=== PATIENT | male | born 1975 | race African-American/Black ===

== ENCOUNTER 2018-03-24 22:31 | Emergency (ER) | payer SELFPAY ==
[2018-03-25] MEDS ORDERED: AMOXICILLIN TRIHYDRATE 500 MG CAPSULE PO ONE (00:07)
[2018-03-25] MEDS ORDERED: PREDNISONE 20 MG TABLET PO ONE (00:07)
[2018-03-25] MEDS ORDERED: ACETAMINOPHEN 325 MG TABLET PO ONE (00:07)
--- NOTE | 2018-03-25 00:08 | ER Document Report ---
ED ENT - General Chief Complaint: Constipation Stated Complaint: SORE THROAT Time Seen by Provider: 03/25/18 00:07 TRAVEL OUTSIDE OF THE [place] IN LAST 30 DAYS: No Physical Exam - Vital signs Vitals: Temp Pulse Resp BP Pulse Ox 100.5 F H 97 16 139/80 H 99 03/24/18 23:25 03/24/18 23:25 03/24/18 23:25 03/24/18 23:25 03/24/18 23:25 Course - Vital Signs Vital signs: Temp Pulse Resp BP Pulse Ox 100.5 F H 97 16 139/80 H 99 03/24/18 23:25 03/24/18 23:25 03/24/18 23:25 03/24/18 23:25 03/24/18 23:25 Discharge - Discharge Referrals: LOCALMD,NO [Primary Care Provider] - Follow up as needed
--- NOTE | 2018-03-25 01:05 | ER Document Report ---
ED Medical Screen (RME) - General Chief Complaint: Sore Throat Stated Complaint: SORE THROAT Time Seen by Provider: 03/25/18 00:07 Mode of Arrival: Wheelchair Information source: Patient Notes: Patient is a 42-year-old male who presents to the ER today for initial complaint of just sore throat 3 days with fever and chills at home. Patient denies cough. Patient denies sick contacts that he knows of. Orders were placed for this complaint and whenever I went to check on patient to see if his fever had gotten any better, he then started coming up with more complaints, abdominal pain, mostly epigastric but radiating to the right upper quadrant and no bowel movement in 3 days. Patient states that he has had "twisted intestines" that had to be "cut out" before. Patient admits to nausea but no vomiting. TRAVEL OUTSIDE OF THE [place] IN LAST 30 DAYS: No Past Medical History - General Information source: Patient Review of Systems - Review of Systems EENT: See HPI Gastrointestinal: See HPI Physical Exam - Vital signs Vitals: Temp Pulse Resp BP Pulse Ox 100.5 F H 97 16 139/80 H 99 03/24/18 23:25 03/24/18 23:25 03/24/18 23:25 03/24/18 23:25 03/24/18 23:25 - Notes Notes: PHYSICAL EXAMINATION: GENERAL: Mildly ill-appearing but in no acute distress. ENT: ear canals without erythema or foreign body, TMs pearly foster with good bony landmarks, nares patent, oropharynx erythematous with enlarged tonsils bilaterally, left worse than right, without exudates. Moist mucous membranes. NECK: Normal range of motion, supple without lymphadenopathy LUNGS: CTAB and equal. No wheezes rales or rhonchi. HEART: Regular rate and rhythm without murmurs ABDOMEN: Soft, epigastric, right upper quadrant tenderness. No guarding, no rebound Course - Vital Signs Vital signs: Temp Pulse Resp BP Pulse Ox 100.5 F H 97 16 139/80 H 99 03/24/18 23:25 03/24/18 23:25 03/24/18 23:25 03/24/18 23:25 03/24/18 23:25 Doctor's Discharge - Discharge Referrals: LOCALMD,NO [Primary Care Provider] - Follow up as needed
[2018-03-25 02:01] LABS: ALANINE AMINOTRANSFERASE 51 U/L (21-72); ALBUMIN 4.1 g/dL (3.5-5.0); ALKALINE PHOSPHATASE 66 U/L (38-126); ANION GAP 15 (5-19); ASPARTATE AMINO TRANSFERASE 65 U/L (17-59); BILIRUBIN,DIRECT 1.3 mg/dL (0.0-0.4); BILIRUBIN,TOTAL 1.8 mg/dL (0.2-1.3); BLOOD UREA NITROGEN 16 mg/dL (7-20); CALCIUM 9.2 mg/dL (8.4-10.2); CARBON DIOXIDE 36 mmol/L (22-30); CHLORIDE 86 mmol/L (98-107); GLUCOSE 142 mg/dL (75-110); SODIUM 137.2 mmol/L (137-145); TOTAL PROTEIN 8.1 g/dL (6.3-8.2)
[2018-03-25 02:09] LABS: HEMATOCRIT 40.3 % (37.9-51.0); HEMOGLOBIN 14.5 g/dL (13.5-17.0); MEAN CORPUSCULAR HEMOGLOBIN 33.4 pg (27.0-33.4); MEAN CORPUSCULAR HGB CONC 35.9 g/dL (32.0-36.0); MEAN CORPUSCULAR VOLUME 93 fl (80-97); PLATELET COUNT 268 10^3/uL (150-450); RED BLOOD COUNT 4.33 10^6/uL (4.35-5.55); RED CELL DISTRIBUTION WIDTH 13.1 % (11.5-14.0); WHITE BLOOD COUNT 3.9 10^3/uL (4.0-10.5)
[2018-03-25 02:12] LABS: POTASSIUM 2.6 mmol/L (3.6-5.0)
[2018-03-25 02:15] LABS: APPEARANCE,URINE SLIGHTLY-CLOUDY; BILIRUBIN,URINE SMALL (NEGATIVE); COLOR,URINE AMBER; GLUCOSE, URINE 50 mg/dL (NEGATIVE); KETONES,URINE TRACE mg/dL (NEGATIVE); LEUKOCYTE ESTERASE,URINE NEGATIVE (NEGATIVE); NITRITE,URINE NEGATIVE (NEGATIVE); PROTEIN,URINE 100 mg/dL (NEGATIVE); URINE SPECIFIC GRAVITY 1.019
[2018-03-25 02:37] LABS: ABSOLUTE LYMPHOCYTES# (MANUAL) 1.5 10^3/uL (0.5-4.7); ABSOLUTE MONOCYTES # (MANUAL) 1.5 10^3/uL (0.1-1.4); ABSOLUTE NEUTROPHILS# (MANUAL) 0.9 10^3/uL (1.7-8.2); BASOPHILS % (MANUAL) 0 % (0-2); EOSINOPHILS % (MANUAL) 0 % (0-6); LYMPHOCYTES % (MANUAL) 36 % (13-45); SEGMENTED NEUTROPHILS % (MAN) 23 % (42-78); TOTAL CELLS COUNTED 100
[2018-03-25 02:41] LABS: PLATELET COMMENT ADEQUATE; PLATELET LARGE PRESENT; RBC MORPHOLOGY COMMENT NORMO-CYTIC/CHROMIC
--- NOTE | 2018-03-25 02:42 | ER Document Report ---
ED General - General Mode of Arrival: Wheelchair TRAVEL OUTSIDE OF THE [place] IN LAST 30 DAYS: No <MARKOS CANELA - Last Filed: 03/25/18 06:54> <MARANDA ELIZABETH - Last Filed: 03/25/18 10:53> - General Chief Complaint: Sore Throat Stated Complaint: SORE THROAT Time Seen by Provider: 03/25/18 00:07 Notes: Patient is a 42-year-old male who comes emergency department for chief complaint of fevers, sore throat, abdominal pain for the past 3 days. He states he has not been able to eat anything person because his throat hurts but also his abdomen hurts in the upper part. He states he has been constipated. He denies vomiting. He denies chest pain, shortness of breath, dizziness. Past medical history of hypertension, takes hydrochlorothiazide, medical history of appendectomy and abdominal obstruction with surgery into the year 1999. He denies any other surgeries or medical history. He smokes, denies alcohol, denies recreational drugs. (MARKOS CANELA) Past Medical History - General Information source: Patient - Social History Smoking Status: Current Every Day Smoker Smoking Education Provided: Yes - <3 min Frequency of alcohol use: None Drug Abuse: None Lives with: Family Family History: Reviewed & Not Pertinent - Past Medical History Cardiac Medical History: Reports: Hx Hypertension Past Surgical History: Reports: Hx Appendectomy, Hx Bowel Surgery - repaired obstruction in 1999 - Immunizations Immunizations up to date: Yes Hx Diphtheria, Pertussis, Tetanus Vaccination: Yes <MARKOS CANELA - Last Filed: 03/25/18 06:54> Review of Systems - Review of Systems Constitutional: See HPI EENT: See HPI Cardiovascular: No symptoms reported Respiratory: No symptoms reported Gastrointestinal: See HPI Genitourinary: No symptoms reported Male Genitourinary: No symptoms reported Musculoskeletal: No symptoms reported Skin: No symptoms reported Hematologic/Lymphatic: No symptoms reported Neurological/Psychological: No symptoms reported <MARKOS CANELA - Last Filed: 03/25/18 06:54> Physical Exam <MARKOS CANELA - Last Filed: 03/25/18 06:54> <MARANDA ELIZABETH - Last Filed: 03/25/18 10:53> - Vital signs Vitals: Temp Pulse Resp BP Pulse Ox 100.5 F H 97 16 139/80 H 99 03/24/18 23:25 03/24/18 23:25 03/24/18 23:25 03/24/18 23:25 03/24/18 23:25 - Notes Notes: GENERAL: Flushed and mildly ill-appearing HEAD: Normocephalic, atraumatic. EYES: Pupils equal, round, and reactive to light. Extraocular movements intact. ENT: Oral mucosa moist, tongue midline. Unremarkable ear canals and tympanic membranes. Mild erythema posterior pharynx with mild tonsillar enlargement but no exudates or evidence of peritonsillar abscess. Otherwise unremarkable oropharyngeal exam. NECK: Full range of motion. Supple. Trachea midline. LUNGS: Clear to auscultation bilaterally, no wheezes, rales, or rhonchi. No respiratory distress. HEART: Regular rate and rhythm. No murmur ABDOMEN: Generalized pain in the upper abdomen, nonspecific, no overt guarding, no rigidity, no rebound tenderness. Lower abdominal scars.. Non-distended. Bowel sounds present in all 4 quadrants. EXTREMITIES: Moves all 4 extremities spontaneously. No edema, normal radial and dorsalis pedis pulses bilaterally. No cyanosis. BACK: no cervical, thoracic, lumbar midline tenderness. No saddle anesthesia, normal distal neurovascular exam. NEUROLOGICAL: Alert and oriented x3. Normal speech. [cranial nerves II through XII grossly intact]. PSYCH: Normal affect, normal mood. SKIN: Flushed. No rashes noted. (MARKOS CANELA) Course - Laboratory Result Diagrams: 03/25/18 01:25 03/25/18 01:25 <MARKOS CANELA - Last Filed: 03/25/18 06:54> - Laboratory Result Diagrams: 03/25/18 01:25 03/25/18 08:11 <MARANDA ELIZABETH - Last Filed: 03/25/18 10:53> - Re-evaluation Re-evalutation: CBC shows elevated monocytes, leukopenia, patient has sore throat, upper abdominal pain, fever. Monotest is negative but since this test is frequently falsely negative based on his presentation, negative strep test, and evaluation I strongly suspect patient has mononucleosis. Patient reporting right upper quadrant pain, as result ultrasound was performed , shows gallbladder sludge, normal common bile duct, no pericholecystic fluid, no acute findings. No overt splenomegaly either. LFTs are not elevated, alk phos is not elevated, direct bilirubin is mildly elevated. This is nonspecific. Potassium is very low at 2.6, patient states he has had this frequently, in the past, magnesium is normal, supplementing and will recheck. Potassium shows expected u-waves. Suspect this is secondary to hydrochlorothiazide because of repeated incidents and no other obvious indication of why this would be happening. Will need to be adjusted. Discussed with Dr. Smith. Plan is to recheck potassium and at the same time recheck direct bilirubin to make sure this is not concerningly elevating along with liver function tests and alk phos suggesting biliary obstruction as an alternative cause of fever. If this is not concerning the elevated patient will be treated for suspected mononucleosis, discharge, and instructed to return in 2 days to have his chemistry rechecked. I discussed this with patient. Introduced at bedside to Dr. Elizabeth. (MARKOS CANELA) 03/25/18 10:49 The potassium remained low minimal improvement after IV patient was given oral to give another dose of oral potassium. Patient was offered admission to the hospital however states that he cannot stay at this time is that he has to start a job later tonight. Patient states he will be his first day and he does not want to miss it. Otherwise patient states feeling better asymptomatic states he will return and follow-up with his doctors as recommended. (MARANDA ELIZABETH) - Vital Signs Vital signs: Temp Pulse Resp BP Pulse Ox 98.5 F 97 16 123/69 97 03/25/18 09:00 03/24/18 23:25 03/25/18 09:01 03/25/18 09:01 03/25/18 09:01 - Laboratory Laboratory results interpreted by me: 03/25/18 03/25/18 03/25/18 01:25 01:25 01:25 WBC 3.9 L RBC 4.33 L Seg Neuts % (Manual) 23 L Monocytes % (Manual) 38 H Abs Neuts (Manual) 0.9 L Abs Monocytes (Manual) 1.5 H Potassium 2.6 L* Chloride 86 L Carbon Dioxide 36 H Glucose 142 H Total Bilirubin 1.8 H Direct Bilirubin 1.3 H AST 65 H Lipase 21.0 L Urine Protein 100 H Urine Glucose (UA) 50 H Urine Ketones TRACE H Urine Blood SMALL H Urine Bilirubin SMALL H Urine Urobilinogen 4.0 H 03/25/18 08:11 WBC RBC Seg Neuts % (Manual) Monocytes % (Manual) Abs Neuts (Manual) Abs Monocytes (Manual) Potassium 2.8 L* Chloride 89 L Carbon Dioxide 39 H Glucose 198 H Total Bilirubin Direct Bilirubin 0.8 H AST Lipase Urine Protein Urine Glucose (UA) Urine Ketones Urine Blood Urine Bilirubin Urine Urobilinogen Discharge <MARKOS CANELA - Last Filed: 03/25/18 06:54> <MARANDA ELIZABETH - Last Filed: 03/25/18 10:53> - Discharge Clinical Impression: Upper abdominal pain, Hypokalemia Fever Qualifiers: Fever type: unspecified Qualified Code(s): R50.9 - Fever, unspecified Pharyngitis Qualifiers: Pharyngitis/tonsillitis etiology: unspecified etiology Qualified Code(s): J02.9 - Acute pharyngitis, unspecified Condition: Stable Disposition: HOME, SELF-CARE Additional Instructions: Your evaluation is most suggestive of mononucleosis, viral infection. Treat fevers with Tylenol and ibuprofen, drink plenty fluids and rest. This slowly resolves with time. See additional details on mono below. Because of your low potassium we are switching your blood pressure medication from hydrochlorothiazide to amlodipine. Take as prescribed, follow closely with your provider for additional management of blood pressure. Recommendation because of your blood chemistries here tonight is to have your blood chemistry repeated in 2 days either here or with your primary care provider to clarify your abdominal pain. Return sooner if you develop any concerning or worsening symptoms including severe pain, vomiting, spiking fever, or any other concerning or worsening symptoms. Mononucleosis You have been diagnosed as having mononucleosis ("mono"). This is a viral infection which often lasts several weeks. Typically, a week or two of tiredness precedes a sore throat, swollen glands, fever, and aches. Sometimes there's a rash. In severe cases, swollen spleen and liver develop. There is no cure for mononucleosis. You should rest, drink plenty of fluids, and avoid contact sports until you are better. A follow-up examination is usually done in about a week. Further laboratory testing may be necessary then. See the doctor if there is significant worsening of the symptoms or onset of new symptoms such as severe headache, stiff neck, generalized abdominal pain , or faintness. Prescriptions: Amlodipine Besylate 5 mg PO DAILY #30 tab Potassium Chloride [Klor-Con 10] 10 meq PO DAILY #20 tablet.sa Referrals: LOCALMD,NO [NO LOCAL MD] - Follow up as needed
[2018-03-25 02:43] LABS: MONOCYTES % (MANUAL) 38 % (3-13)
[2018-03-25] MEDS: POTASSI CL 20 MEQ/50 ML RIDER 20 MEQ/50 ML RTUPB IV SCH ×2 (03:35→05:35)
--- NOTE | 2018-03-25 04:59 | RADIOLOGY REPORT (SQ) ---
EXAM DESCRIPTION: US ABDOMEN LIMITED COMPLETED DATE/TME: 03/25/2018 02:32 CLINICAL HISTORY: 42 years, Male, RUQ pain, fever COMPARISON: None. TECHNIQUE: Grayscale and Doppler sonogram of the abdomen. LIMITATIONS: None. FINDINGS: Pancreas: Visualized portion is unremarkable. Aorta: Visualized portion is unremarkable. IVC: Visualized portion is unremarkable. Liver: Parenchyma: Homogenous echotexture. Length: 16 cm. Main portal vein: Normal directional flow. Gallbladder: Intraluminal gallstones: Negative. Gallbladder sludge is noted Wall: No thickening. Sonographic Talbert sign: Negative. Common bile duct: Diameter: 0.3 cm. Right kidney: Length: 10.9 x 4.8 x 5.2 cm. No hydronephrosis. Left kidney: Length: 12.8 x 6.3 x 4.9 cm. No hydronephrosis. Spleen: Measures 10.2 cm. IMPRESSION: Gallbladder sludge. Otherwise, unremarkable exam 2010 [employer]- All Rights Reserved
[2018-03-25] MEDS ORDERED: POTASSIUM CHLORIDE 10 MEQ CAPSULE.ER PO ONE ×2 (05:32→09:33)
[2018-03-25] MEDS ORDERED: AMLODIPINE BESYLATE 5 MG TABLET PO ONE (06:48)
--- NOTE | 2018-03-25 07:58 | EKG REPORT ---
SEVERITY:- ABNORMAL ECG - SINUS RHYTHM LEFT VENTRICULAR HYPERTROPHY ANTERIOR ST ELEVATION, PROBABLY DUE TO LVH PROLONGED QT INTERVAL : Confirmed by: Ela German MD 25-Mar-2018 07:57:28
[2018-03-25 08:43] LABS: ALANINE AMINOTRANSFERASE 47 U/L (21-72); ALBUMIN 3.5 g/dL (3.5-5.0); ALKALINE PHOSPHATASE 58 U/L (38-126); ANION GAP 12 (5-19); ASPARTATE AMINO TRANSFERASE 52 U/L (17-59); BILIRUBIN,DIRECT 0.8 mg/dL (0.0-0.4); BILIRUBIN,TOTAL 0.9 mg/dL (0.2-1.3); BLOOD UREA NITROGEN 15 mg/dL (7-20); CARBON DIOXIDE 39 mmol/L (22-30); CHLORIDE 89 mmol/L (98-107); GLUCOSE 198 mg/dL (75-110); SODIUM 139.7 mmol/L (137-145); TOTAL PROTEIN 7.2 g/dL (6.3-8.2)
[2018-03-25 08:47] LABS: POTASSIUM 2.8 mmol/L (3.6-5.0)
[2018-03-25 10:57] VITALS: BP 128/80
[2018-03-25 11:46] LABS: PATH REVIEW PATHOLOGIST REVIEWED
--- NOTE | 2018-03-25 19:43 | EKG REPORT ---
SEVERITY:- ABNORMAL ECG - SINUS RHYTHM LEFT VENTRICULAR HYPERTROPHY ABNORMAL T, CONSIDER ISCHEMIA, ANTERIOR LEADS ST ELEVATION SUGGESTS PERICARDITIS PROLONGED QT INTERVAL : Confirmed by: Ela German MD 25-Mar-2018 19:42:04
== END 2018-03-25 10:55 | disposition home or self-care (01) ==
LOC: ER 22:31
DX: J02.9 Acute pharyngitis, unspecified (principal); E87.6 Hypokalemia; R50.9 Fever, unspecified; K59.00 Constipation, unspecified; K82.8 Other specified diseases of gallbladder; R10.11 Right upper quadrant pain; F17.200 Nicotine dependence, unspecified, uncomplicated; J35.1 Hypertrophy of tonsils; I10 Essential (primary) hypertension; Z79.899 Other long term (current) drug therapy; Z90.49 Acquired absence of other specified parts of digestive tract; Z87.19 Personal history of other diseases of the digestive system
CPT/HCPCS: 93005; 99284; 96365; 96366; 36415; 87040; 87070; 87880; 83605; 83690; 83735; 85025; 86308; 80053; 81001; 84484; 76705; 93010; J7512; J3480

== ENCOUNTER 2018-04-21 09:08 | Emergency (ER) | payer SELFPAY ==
[2018-04-21] MEDS ORDERED: ASPIRIN 81 MG TABLET, CHEWABLE PO ONE (09:44)
[2018-04-21] MEDS ORDERED: AMLODIPINE BESYLATE 5 MG TABLET PO ONE (09:45)
--- NOTE | 2018-04-21 09:45 | ER Document Report ---
ED Medical Screen (RME) - General Chief Complaint: Chest Pain Stated Complaint: CHEST PAIN Time Seen by Provider: 04/21/18 09:41 TRAVEL OUTSIDE OF THE [place] IN LAST 30 DAYS: No - HPI Notes: 04/21/18 09:44 Intermittent left-sided chest pain last episode was last night. Patient states smoking history of hypertension. - Related Data Allergies/Adverse Reactions: No Known Allergies Allergy (Verified 03/25/18 09:46) Past Medical History - Social History Chew tobacco use (# tins/day): No Frequency of alcohol use: None Drug Abuse: None - Past Medical History Cardiac Medical History: Reports: Hx Hypertension Renal/ Medical History: Denies: Hx Peritoneal Dialysis Past Surgical History: Reports: Hx Appendectomy, Hx Bowel Surgery - repaired obstruction in 1999 - Immunizations Immunizations up to date: Yes Hx Diphtheria, Pertussis, Tetanus Vaccination: Yes Review of Systems - Review of Systems Cardiovascular: Chest pain Physical Exam - Vital signs Vitals: Temp Pulse Resp BP Pulse Ox 98.8 F 85 18 146/77 H 99 04/21/18 09:29 04/21/18 09:29 04/21/18 09:29 04/21/18 09:29 04/21/18 09:29 - Respiratory Respiratory status: No respiratory distress Chest status: Nontender Breath sounds: Normal Chest palpation: Normal Course - Vital Signs Vital signs: Temp Pulse Resp BP Pulse Ox 98.8 F 85 18 146/77 H 99 04/21/18 09:29 04/21/18 09:29 04/21/18 09:29 04/21/18 09:29 04/21/18 09:29
[2018-04-21 10:31] LABS: ABSOLUTE BASOPHILS # (AUTO) 0.1 10^3/uL (0.0-0.2); ABSOLUTE EOSINOPHILS # (AUTO) 0.1 10^3/uL (0.0-0.6); ABSOLUTE LYMPHOCYTES (AUTO) 2.2 10^3/uL (0.5-4.7); ABSOLUTE MONOCYTES (AUTO) 0.7 10^3/uL (0.1-1.4); ABSOLUTE NEUT (AUTO) 1.2 10^3/uL (1.7-8.2); BASOPHILS % (AUTO) 1.3 % (0-2); EOSINOPHILS % (AUTO) 1.6 % (0-6); HEMATOCRIT 42.1 % (37.9-51.0); HEMOGLOBIN 14.4 g/dL (13.5-17.0); LYMPHOCYTES % (AUTO) 51.3 % (13-45); MEAN CORPUSCULAR HEMOGLOBIN 32.5 pg (27.0-33.4); MEAN CORPUSCULAR HGB CONC 34.3 g/dL (32.0-36.0); MEAN CORPUSCULAR VOLUME 95 fl (80-97); MONOCYTES % (AUTO) 16.4 % (3-13); PLATELET COUNT 222 10^3/uL (150-450); RED BLOOD COUNT 4.44 10^6/uL (4.35-5.55); RED CELL DISTRIBUTION WIDTH 14.2 % (11.5-14.0); SEGMENTED NEUTROPHILS % (AUTO) 29.4 % (42-78); TOTAL CELLS COUNTED % (AUTO) 100 %; WHITE BLOOD COUNT 4.2 10^3/uL (4.0-10.5)
[2018-04-21 10:32] LABS: APPEARANCE,URINE CLOUDY; BILIRUBIN,URINE NEGATIVE (NEGATIVE); GLUCOSE, URINE NEGATIVE (NEGATIVE); KETONES,URINE NEGATIVE (NEGATIVE); LEUKOCYTE ESTERASE,URINE NEGATIVE (NEGATIVE); NITRITE,URINE NEGATIVE (NEGATIVE); PROTEIN,URINE NEGATIVE (NEGATIVE); URINE SPECIFIC GRAVITY 1.023
--- NOTE | 2018-04-21 10:32 | RADIOLOGY REPORT (SQ) ---
EXAM DESCRIPTION: CHEST 2 VIEWS COMPLETED DATE/TIME: 04/21/2018 10:13 am REASON FOR STUDY: sob cp COMPARISON: None. EXAM PARAMETERS: NUMBER OF VIEWS: two views TECHNIQUE: Digital Frontal and Lateral radiographic views of the chest acquired. RADIATION DOSE: NA LIMITATIONS: none FINDINGS: LUNGS AND PLEURA: A few metallic pellets overlying the right upper and lower anterior forrest st wall. Very small metallic fragments overlie the right lung base. No opacities, masses or pneumot horax. No pleural effusion. MEDIASTINUM AND HILAR STRUCTURES: No masses or contour abnormalities. HEART AND VASCULAR STRUCTURES: Heart normal size. No evidence for failure. BONES: No acute findings. HARDWARE: None in the chest. OTHER: No other significant finding. IMPRESSION: NO ACUTE RADIOGRAPHIC FINDING IN THE CHEST. TECHNICAL DOCUMENTATION: JOB ID: [id number] [employer]- All Rights Reserved Reading location - IP/workstation name: [email or web address]
[2018-04-21 10:35] LABS: COLOR,URINE YELLOW
--- NOTE | 2018-04-21 10:55 | EKG REPORT ---
SEVERITY:- ABNORMAL ECG - SINUS RHYTHM MULTIPLE ATRIAL PREMATURE COMPLEXES LEFT VENTRICULAR HYPERTROPHY BORDERLINE T ABNORMALITIES, INFERIOR LEADS ANTERIOR ST ELEVATION, PROBABLY DUE TO LVH BLOCKED APC : Confirmed by: Ela German MD 21-Apr-2018 10:54:32
[2018-04-21 10:58] LABS: ALANINE AMINOTRANSFERASE 26 U/L (21-72); ALKALINE PHOSPHATASE 56 U/L (38-126); ANION GAP 13 (5-19); ASPARTATE AMINO TRANSFERASE 38 U/L (17-59); BILIRUBIN,DIRECT 0.3 mg/dL (0.0-0.4); BILIRUBIN,TOTAL 0.6 mg/dL (0.2-1.3); BLOOD UREA NITROGEN 12 mg/dL (7-20); CALCIUM 9.3 mg/dL (8.4-10.2); CARBON DIOXIDE 34 mmol/L (22-30); CHLORIDE 99 mmol/L (98-107); CREATINE KINASE 604 U/L (55-170); GLUCOSE 77 mg/dL (75-110); POTASSIUM 3.3 mmol/L (3.6-5.0); SODIUM 145.7 mmol/L (137-145); TOTAL PROTEIN 7.6 g/dL (6.3-8.2)
[2018-04-21 11:11] LABS: CREATINE KINASE MB 3.83 ng/mL (<4.55); TROPONIN I < 0.012 ng/mL
[2018-04-21] MEDS ORDERED: POTASSIUM CHLORIDE 10 MEQ CAPSULE.ER PO ONE (11:22)
[2018-04-21] MEDS ORDERED: ACETAMINOPHEN 325 MG TABLET PO ONE (11:23)
[2018-04-21] MEDS ORDERED: IBUPROFEN 600 MG TABLET PO ONE (11:23)
--- NOTE | 2018-04-21 11:26 | ER Document Report ---
ED General - General Chief Complaint: Chest Pain Stated Complaint: CHEST PAIN Time Seen by Provider: 04/21/18 09:41 TRAVEL OUTSIDE OF THE [place] IN LAST 30 DAYS: No - HPI Patient complains to provider of: Chest pain Notes: Patient coming in for evaluation of chest pain. Patient states intermittent chest pains ongoing for last few months last night sharp shooting chest pain left upper chest. Patient denies any fever chills nausea vomiting diarrhea denies any smoking drug abuse or alcohol abuse. Patient states he does have a history of hypertension has been prescribed medication here in ER however has never filled the prescription. Denies any recent travel otherwise is resting comfortably states no exacerbating or relieving factors other sharp shooting pain last night currently pain-free - Related Data Allergies/Adverse Reactions: No Known Allergies Allergy (Verified 03/25/18 09:46) Past Medical History - Social History Smoking Status: Current Every Day Smoker Chew tobacco use (# tins/day): No Frequency of alcohol use: None Drug Abuse: None Family History: Reviewed & Not Pertinent Patient has suicidal ideation: No Patient has homicidal ideation: No - Past Medical History Cardiac Medical History: Reports: Hx Hypertension Renal/ Medical History: Denies: Hx Peritoneal Dialysis Past Surgical History: Reports: Hx Appendectomy, Hx Bowel Surgery - repaired obstruction in 1999 - Immunizations Immunizations up to date: Yes Hx Diphtheria, Pertussis, Tetanus Vaccination: Yes Review of Systems - Review of Systems Constitutional: No symptoms reported EENT: No symptoms reported Cardiovascular: Chest pain Respiratory: No symptoms reported Gastrointestinal: No symptoms reported Genitourinary: No symptoms reported Male Genitourinary: No symptoms reported Musculoskeletal: No symptoms reported Skin: No symptoms reported Hematologic/Lymphatic: No symptoms reported Neurological/Psychological: No symptoms reported Physical Exam - Vital signs Vitals: Temp Pulse Resp BP Pulse Ox 98.8 F 85 18 146/77 H 99 04/21/18 09:29 04/21/18 09:29 04/21/18 09:29 04/21/18 09:29 04/21/18 09:29 Interpretation: Normal - General General appearance: Appears well, Alert - HEENT Head: Normocephalic, Atraumatic Eyes: Normal Pupils: PERRL - Respiratory Respiratory status: No respiratory distress Chest status: Nontender Breath sounds: Normal Chest palpation: Normal - Cardiovascular Rhythm: Regular Heart sounds: Normal auscultation Murmur: No - Abdominal Inspection: Normal Distension: No distension Bowel sounds: Normal Tenderness: Nontender Organomegaly: No organomegaly - Back Back: Normal, Nontender - Extremities General upper extremity: Normal inspection, Nontender, Normal color, Normal ROM , Normal temperature General lower extremity: Normal inspection, Nontender, Normal color, Normal ROM , Normal temperature, Normal weight bearing. No: Kimberly's sign - Neurological Neuro grossly intact: Yes Cognition: Normal Orientation: AAOx4 [place] Coma Scale Eye Opening: Spontaneous [place] Coma Scale Verbal: Oriented [place] Coma Scale Motor: Obeys Commands [place] Coma Scale Total: 15 Speech: Normal Motor strength normal: LUE, RUE, LLE, RLE Sensory: Normal - Psychological Associated symptoms: Normal affect, Normal mood - Skin Skin Temperature: Warm Skin Moisture: Dry Skin Color: Normal Course - Re-evaluation Re-evalutation: 04/21/18 20:00 Initial EKG shows signs of early repolarization abnormality with a normal troponin repeat EKG again showed the repolarization abnormality. Upon time of discharge the patient on a cardiac/vascular sonographer had episodes of atrial fibrillation. Repeat EKG at that time did show underlying A. fib. Lab work also shows hyperkalemia which patient was given oral tablets for. Also shows the patient' s positive for cocaine states that he last used about last 48 hours. The discussed with hospitalist myself and Dr. Medina refrwilla at bedside explained to the patient the need for admission as a has new onset A. fib need to rule out significant pathology changing of medications is that A. fib can cause stroke and other significant disease courses that may lead to disability or . Patient states that he would rather go home at this time to go back to work. Again patient is able to make his own medical decision however given size of sign out AGAINST MEDICAL ADVICE. The patient has decided not to proceed with further recommended testing or treatment to determine the cause of their symptoms. The risks and alternatives to the recommendation were discussed and the patient voiced understanding. The patient appears clinically to have capacity to make this decision. The patient was instructed that he/she could return to the ER at any time to complete the testing or treatment.. - Vital Signs Vital signs: Temp Pulse Resp BP Pulse Ox 98.8 F 85 13 143/94 H 100 04/21/18 09:29 04/21/18 09:29 04/21/18 13:40 04/21/18 13:40 04/21/18 13:40 - Laboratory Result Diagrams: 04/21/18 09:45 04/21/18 09:45 Laboratory results interpreted by me: 04/21/18 04/21/18 04/21/18 09:45 09:45 09:45 RDW 14.2 H Seg Neutrophils % 29.4 L Lymphocytes % 51.3 H Monocytes % 16.4 H Absolute Neutrophils 1.2 L Sodium 145.7 H Potassium 3.3 L Carbon Dioxide 34 H Creatine Kinase 604 H Urine Urobilinogen 4.0 H Discharge - Discharge Clinical Impression: Chest wall pain, Hypokalemia, New onset atrial fibrillation Condition: Good Disposition: AGAINST MEDICAL ADVICE Instructions: Antacid Therapy ([facility]), Anti-Inflammatory Medication ([facility]), Aspirin (Cardiac) ([facility]), Chest Wall Pain ([facility]), Chest Pain of Unclear Cause ([facility] ), Hypokalemia ([facility]) Additional Instructions: Your EKG shows signs of intermittent new onset A. fib today basically your heart beats irregular random times throughout the day. This random irregular beat does increase your risk of stroke heart attack and other significant disease greatly. We have discussed with the our request to admit you to the hospital for further evaluation. You understand the risk that he may have a stroke if left untreated. This can leave you disabled unable to work unable to care for your family can also relieve you in the bed if not calls certain . He does understand these risks. I recommend she follow-up with the talent development analyst provided. Return to ER symptoms worsen. Please take an aspirin daily No signs of heart attack cardiac ischemia no signs of infection requiring antibiotics no signs of any surgical pathology. Laboratories showed a low potassium which can cause muscle spasms. This is more consistent with the pain that you are describing. Would recommend eating a complete diet full of fruits and vegetables. I would also recommend possibly eating 1 banana once a day or every other day. Bananas are high in potassium. Recommend following up with your primary care physician return to ER if symptoms worsen. Please stop smoking. Prescriptions: Ibuprofen [Motrin 600 mg Tablet] 600 mg PO Q8HP PRN #21 tablet PRN Reason: Amlodipine Besylate 5 mg PO DAILY #30 tab Forms: Elevated Blood Pressure, Return to Work Referrals: MANAN DURBIN MD [ACTIVE STAFF] - Follow up as needed
[2018-04-21 11:29] LABS: URINE AMPHETAMINES SCREEN NEGATIVE; URINE BARBITURATES SCREEN NEGATIVE; URINE BENZODIAZEPINES SCREEN NEGATIVE; URINE COCAINE SCREEN UNCONFIRMED POSITIVE; URINE MARIJUANA (THC) SCREEN NEGATIVE; URINE METHADONE SCREEN NEGATIVE; URINE PHENCYCLIDINE SCREEN NEGATIVE
[2018-04-21] MEDS ORDERED: KETOROLAC TROMETHAMINE INJ/PF 30 MG/1 ML SDV IV ONE (11:33)
[2018-04-21 13:52] VITALS: BP 143/94
--- NOTE | 2018-04-21 22:06 | EKG REPORT ---
SEVERITY:- ABNORMAL ECG - SINUS RHYTHM LEFT VENTRICULAR HYPERTROPHY ST ELEV, PROBABLE NORMAL EARLY REPOL PATTERN : Confirmed by: Ela German MD 21-Apr-2018 22:05:05
--- NOTE | 2018-04-21 22:06 | EKG REPORT ---
SEVERITY:- ABNORMAL ECG - ATRIAL FIBRILLATION, V-RATE 61-[address] ELEV, PROBABLE NORMAL EARLY REPOL PATTERN : Confirmed by: Ela German MD 21-Apr-2018 22:04:09
== END 2018-04-21 14:01 | disposition left against medical advice (07) ==
LOC: ER 09:08
DX: R07.89 Other chest pain (principal); I48.91 Unspecified atrial fibrillation; E87.6 Hypokalemia; I10 Essential (primary) hypertension; Z91.14 Patient's other noncompliance with medication regimen; F17.200 Nicotine dependence, unspecified, uncomplicated; Z53.29 Procedure and treatment not carried out because of patient's decision for other reasons
CPT/HCPCS: 93005; 99285; 96374; 36415; 82553; 82550; 85025; 80053; 81001; 84484; 80307; 71046; 93010; J1885